=== PATIENT | female | born 1975 | race African-American/Black ===

== ENCOUNTER 2021-12-28 19:56 | Emergency (ER) | payer OTHER, MEDICAID ==
[~2021-12-28] VITALS: Ht 160 cm; Wt 73.1 kg
[2021-12-28 19:58] VITALS: BP 152/105
== END 2021-12-28 23:07 | disposition home or self-care (01) ==
LOC: ER 19:56
DX: S61.411A Laceration without foreign body of right hand, initial encounter (principal); W26.8XXA Contact with other sharp object(s), not elsewhere classified, initial encounter; Y93.89 Activity, other specified; Y92.89 Other specified places as the place of occurrence of the external cause; Y99.8 Other external cause status; I10 Essential (primary) hypertension; Z98.890 Other specified postprocedural states; Z88.0 Allergy status to penicillin
CPT/HCPCS: 12001; 99282